=== PATIENT | female | born 1960 | race Caucasian/White ===

== ENCOUNTER 2017-09-01 17:27 | Emergency (ER) | payer OTHER ==
[~2017-09-01 17:27] MED LIST: DONNTAB12 PO; HYDR12.56 PO; LORTA5 PO; MECL25 PO; NEXI40CA PO; PENI500T PO; POTA20IN3 PO; PRAV20TA67 PO; SYNT100T PO; ZOFR4TAB3 SL; ZYRT10TA12 PO; [UNRECOGNIZED DRUG - OTHER] PO
--- NOTE | 2017-09-01 17:54 | PD ---
Physical Exam Time Seen by Provider: 17:50 Narrative Pt has history of depression, anxiety, memory loss, chronic pain, kidney disease with chronic hematuria, difficulty hearing, hypothyroidism presents to ED voluntary for psychiatric evaluation. Pt states she has been taking her meds as prescribed, however, family with her disagree and state they can only find 4 bottles of her meds that are prescribed. Pt's neurologic symptoms have worsened over the last year. Went to [facility] last night, but they referred her to [facility] and then here. Pt is having hallucinations intermittently. Denies SI/HI. Denies illicit drug use. Denies alcohol use. Data Data Last Documented VS Vital Signs Date Time Temp Pulse Resp B/P (MAP) Pulse Ox O2 Delivery O2 Flow Rate FiO2 09/02/17 01:17 09/01/17 19:32 98.6 68 16 100 Orders Orders Complete Blood Count With Diff (09/01/17 17:49) Basic Metabolic Panel (Bmp) (09/01/17 17:49) Urinalysis - C+S If Indicated (09/01/17 17:49) Psych Screen (09/01/17 17:49) Drug Screen, Random Urine (09/01/17 17:49) Alcohol (Ethanol) (09/01/17 17:49) Urine Culture (09/01/17 UNK) Thyroid Stimulating Hormone (09/01/17 22:14) Ct Brain W/O Iv Contrast(Rout) (09/01/17 ) Ct Abd/Pel W/O Iv Contrast (09/01/17 ) Hepatic Functional Panel (09/01/17 22:14) Ammonia (09/01/17 22:14) Lorazepam (Ativan) (09/01/17 23:00) Labs Laboratory Tests Test 09/01/17 00:00 09/01/17 16:40 09/01/17 18:45 09/01/17 22:45 Urine Color YELLOW Urine Turbidity HAZY Urine pH 6.0 Urine Specific [place] 1.018 Urine Protein TRACE mg/dL Urine Glucose (UA) NEG mg/dL Urine Ketones NEG mg/dL Urine Occult Blood MOD Urine Nitrite NEG Urine Bilirubin NEG Urine Urobilinogen 2.0 MG/DL Urine Leukocyte Esterase LARGE Urine RBC 65 /hpf Urine WBC 66 /hpf Urine Squamous Epithelial Cells 1 /hpf Urine Calcium Oxalate Crystals MOD /hpf Urine Amorphous Sediment RARE Urine Bacteria RARE /hpf Urine Mucus FEW /lpf Microscopic Urinalysis Comment CULTURE INDICATED Urine Opiates Screen NEG Urine Barbiturates Screen NEG Urine Amphetamines Screen NEG Urine Benzodiazepines Screen NEG Urine Cocaine Screen NEG Urine Cannabinoids Screen NEG Blood Urea Nitrogen 15 MG/DL Creatinine 1.08 MG/DL Random Glucose 98 MG/DL Calcium Level 9.0 MG/DL Sodium Level 139 MEQ/L Potassium Level 3.8 MEQ/L Chloride Level 105 MEQ/L Carbon Dioxide Level 27.9 MEQ/L Anion Gap 6 MEQ/L Estimat Glomerular Filtration Rate 52 ML/MIN Ethyl Alcohol Level LESS THAN 3 MG/DL White Blood Count 9.1 TH/MM3 Red Blood Count 4.16 MIL/MM3 Hemoglobin 12.1 GM/DL Hematocrit 35.3 % Mean Corpuscular Volume 84.7 FL Mean Corpuscular Hemoglobin 29.1 PG Mean Corpuscular Hemoglobin Concent 34.3 % Red Cell Distribution Width 13.1 % Platelet Count 358 TH/MM3 Mean Platelet Volume 8.0 FL Neutrophils (%) (Auto) 61.4 % Lymphocytes (%) (Auto) 28.3 % Monocytes (%) (Auto) 7.7 % Eosinophils (%) (Auto) 1.3 % Basophils (%) (Auto) 1.3 % Neutrophils # (Auto) 5.6 TH/MM3 Lymphocytes # (Auto) 2.6 TH/MM3 Monocytes # (Auto) 0.7 TH/MM3 Eosinophils # (Auto) 0.1 TH/MM3 Basophils # (Auto) 0.1 TH/MM3 CBC Comment DIFF FINAL Differential Comment Ammonia 37 MCMOL/L Test 09/01/17 23:31 Total Bilirubin 0.3 MG/DL Direct Bilirubin 0.1 MG/DL Indirect Bilirubin 0.2 MG/DL Aspartate Amino Transf (AST/SGOT) 22 U/L Alanine Aminotransferase (ALT/SGPT) 24 U/L Alkaline Phosphatase 90 U/L Total Protein 7.5 GM/DL Albumin 3.6 GM/DL Thyroid Stimulating Hormone 3rd Gen 0.657 uIU/ML [facility] Medical Record Reviewed: Yes Supervised Visit with CAYETANO: No Condition: Stable Berna Norris Sep 01, 2017 17:54
[2017-09-01 19:30] LABS: AUTOMATED NEUTROPHIL # 5.6 TH/MM3 (1.8-7.7); BASOPHIL # 0.1 TH/MM3 (0-0.2); BASOPHIL % 1.3 % (0.0-2.0); EOSINOPHIL # 0.1 TH/MM3 (0-0.4); EOSINOPHIL % 1.3 % (0.0-4.0); HEMATOCRIT 35.3 % (35.0-46.0); HEMO FLAGS DIFF FINAL; LYMPH % 28.3 % (9.0-44.0); LYMPHOCYTE # 2.6 TH/MM3 (1.0-4.8); MEAN CELL VOLUME 84.7 FL (80.0-100.0); MEAN CORPUSCULAR HEMOGLOBIN 29.1 PG (27.0-34.0); MEAN CORPUSCULAR HGB CONC 34.3 % (32.0-36.0); MONO % 7.7 % (0.0-8.0); NEUT % 61.4 % (16.0-70.0); PLATELET COUNT 358 TH/MM3 (150-450); RED BLOOD COUNT 4.16 MIL/MM3 (4.00-5.30); RED CELL DISTRIBUTION WIDTH 13.1 % (11.6-17.2); WHITE BLOOD COUNT 9.1 TH/MM3 (4.0-11.0)
[2017-09-01 19:32] VITALS: BP 148/77; TEMP 98.6; O2SAT 100
[2017-09-01 19:51] LABS: ANION GAP 6 MEQ/L (5-15); BICARBONATE 27.9 MEQ/L (21.0-32.0); BLOOD UREA NITROGEN 15 MG/DL (7-18); CHLORIDE 105 MEQ/L (98-107); GLOMERULAR FILTRATION RATE 52 ML/MIN (>89); POTASSIUM 3.8 MEQ/L (3.5-5.1); SODIUM (NA) 139 MEQ/L (136-145)
[2017-09-01 19:54] LABS: BACTERIA, URINE RARE /hpf; BLOOD, URINE MOD (NEG); CALCIUM OXALATE CRYSTALS,URINE MOD /hpf; COMMENT (UR) CULTURE INDICATED; CULTURE IF INDICATED CULTURE INDICATED; GLUCOSE,URINE NEG (NEG); KETONE, URINE NEG (NEG); MUCUS URINE FEW /lpf (OCC); NITRITE,URINE NEG (NEG); SQUAMOUS EPITHELIAL CELL URINE 1 /hpf (0-5); URINE COLOR YELLOW (YELLW/STRAW)
[2017-09-01 19:58] LABS: ALCOHOL LESS THAN 3 MG/DL (0-5)
[2017-09-01] MEDS ORDERED: LORazepam 1 MG TAB PO ONE (23:00)
--- NOTE | 2017-09-01 23:14 | RADRPT ---
EXAM DATE/TIME: 09/01/2017 22:59 [facility] COMPARISON: No previous studies available for comparison. INDICATIONS : Altered mental status. RADIATION DOSE: 45.86 CTDIvol (mGy) MEDICAL HISTORY : Renal calculi. SURGICAL HISTORY : Sinus surgery. ENCOUNTER: Initial ACUITY: 1 day PAIN SCALE: 0/10 LOCATION: cranial TECHNIQUE: Multiple contiguous axial images were obtained of the head. Using automated exposure control and adj ustment of the mA and/or kV according to patient size, radiation dose was kept as low as reasonably a chievable to obtain optimal diagnostic quality images. DICOM format image data is available electro nically for review and comparison. FINDINGS: CEREBRUM: The ventricles are normal for age. No evidence of midline shift, mass lesion, hemorrhage or acute in farction. No extra-axial fluid collections are seen. POSTERIOR FOSSA: The cerebellum and brainstem are intact. The 4th ventricle is midline. The cerebellopontine angle i s unremarkable. EXTRACRANIAL: The visualized portion of the orbits is intact. SKULL: The calvaria is intact. No evidence of skull fracture. CONCLUSION: Negative noncontrast head CT. Tono Molina MD on September 01, 2017 at 23:11 Board Certified Radiologist. This report was verified electronically.
--- NOTE | 2017-09-01 23:17 | RADRPT ---
EXAM DATE/TIME: 09/01/2017 23:02 [facility] COMPARISON: No previous studies available for comparison. INDICATIONS : Left flank pain with hematuria. ORAL CONTRAST: No oral contrast ingested. RADIATION DOSE: 5.14 CTDIvol (mGy) MEDICAL HISTORY : Renal calculi. SURGICAL HISTORY : Sinus surgery.Bladder lift ENCOUNTER: Initial ACUITY: 1 day PAIN SCALE: 7/10 LOCATION: Left flank abdomen TECHNIQUE: Volumetric scanning of the abdomen and pelvis was performed. Using automated exposure control and ad justment of the mA and/or kV according to patient size, radiation dose was kept as low as reasonably achievable to obtain optimal diagnostic quality images. DICOM format image data is available electro nically for review and comparison. FINDINGS: LOWER LUNGS: The visualized lower lungs are clear. LIVER: Homogeneous density without lesion. There is no dilation of the biliary tree. No calcified gallston es. SPLEEN: Normal size without lesion. PANCREAS: Within normal limits. KIDNEYS: Scattered nonobstructing stones are seen of both kidneys including 7 mm right mid, 2 and 3 mm right l ower pole, 7 and 3 mm left upper pole and 4 mm left lower pole. No ureteral calculus demonstrated. No hydronephrosis or hydroureter. ADRENAL GLANDS: Within normal limits. VASCULAR: There is no aortic aneurysm. BOWEL/MESENTERY: The stomach, small bowel, and colon demonstrate no acute abnormality. There is no free intraperitone al air or fluid. Well-visualized appendix, normal. ABDOMINAL WALL: Within normal limits. RETROPERITONEUM: There is no lymphadenopathy. BLADDER: No wall thickening or mass. REPRODUCTIVE: Previous hysterectomy. Pessary present. No free fluid. INGUINAL: There is no lymphadenopathy or hernia. MUSCULOSKELETAL: No acute bony abnormality demonstrated. CONCLUSION: Several subcentimeter nonobstructing stones of both kidneys. No ureteral stone or evidence of acute o bstructive uropathy on either side. Tono Molina MD on September 01, 2017 at 23:13 Board Certified Radiologist. This report was verified electronically.
[2017-09-01 23:52] LABS: INDIRECT BILIRUBIN 0.2 MG/DL (0.0-0.8); TOTAL BILIRUBIN ADULT 0.3 MG/DL (0.2-1.0)
--- NOTE | 2017-09-02 00:53 | PD ---
HPI Chief Complaint: Psychiatric Symptoms Time Seen by Provider: 21:45 Travel History International Travel<30 days: No Contact w/Intl Traveler<30days: No Traveled to known affect area: No History of Present Illness HPI Patient is a 57 year old female who comes in with her family due to concerns over memory loss and inability to care for herself. The patient does seem to be having issues with her memory and she realizes this. She says she has some pain to her left side from chronic kidney stones. She has no other complaints. Family states she has had a decline in her memory over the past year and it seems to have gotten worse in the past few months. There are concerns she may have some hallucinations. Family tried taking her to [facility] because they feel she needs to be managed by psychiatry, but they were told that was not the place for her. They then tried going to [facility] and they were then referred here. Family reports her mother had early onset dementia in her 50s. PFSH Past Medical History Asthma: Yes Diminished Hearing: No Kidney Stones: Yes Respiratory: Yes (SLEEP APNEA, ASTHMA) Thyroid Disease: Yes Past Surgical History Gynecologic Surgery: Yes (MONIKA) Other Surgery: Yes (SINUS SURGERY X 3) Social History Alcohol Use: Yes (WINE DAILY) Tobacco Use: No Substance Use: No Allergies-Medications (Allergen,Severity, Reaction): Coded Allergies: acetaminophen (Unverified Allergy, Severe, 07/15/17) daptomycin (Unverified Allergy, Severe, 07/15/17) hydromorphone (Unverified Allergy, Severe, 07/15/17) indomethacin (Unverified Allergy, Severe, 07/15/17) morphine (Unverified Allergy, Severe, 07/15/17) oxycodone (Unverified Allergy, Severe, 07/15/17) rifampin (Unverified Allergy, Severe, 07/15/17) Sulfa (Sulfonamide Antibiotics) (Unverified Allergy, Intermediate, VOMITING, 07/15/17) isosorbide (Unverified Allergy, Intermediate, 07/15/17) Reported Meds & Prescriptions Reported Meds & Active Scripts Active Lortab 5/325 Tab (Hydrocodone-Acetaminophen) 1 Tab Tab 1 Tab PO Q4 PRN Zofran ODT (Ondansetron HCl) 4 Mg Tab 4-8 Mg SL Q6 PRN FOR NAUSEA/VOMITING Antivert (Meclizine HCl) 25 Mg Tab 25 Mg PO Q6 PRN Reported [Urbel] Unknown Dose PO DAILY Pen Vk (Penicillin V Potassium) 500 Mg Tab 500 Mg PO QID Potassium Chloride 20 Meq Pow 20 Meq PO DAILY Hctz (Hydrochlorothiazide) 12.5 Mg Cap 12.5 Mg PO DAILY Synthroid (Levothyroxine Sodium) 100 Mcg Tab 100 Mcg PO DAILY Nexium (Esomeprazole) 40 Mg Cap 40 Mg PO BID Pravachol (Pravastatin Sodium) 20 Mg Tab 20 Mg PO HS (Belladonna Alkaloids/Phenobarbital) Tab 1 Tab PO TID Zyrtec (Cetirizine HCl) 10 Mg Tab 10 Mg PO DAILY Review of Systems Except as stated in HPI: all other systems reviewed are Neg General / Constitutional: No: Fever, Chills Eyes: No: Blurred Vision HENT: No: Headaches, Lightheadedness Cardiovascular: No: Chest Pain or Discomfort Respiratory: No: Shortness of Breath Gastrointestinal: No: Nausea, Vomiting, Abdominal Pain Genitourinary: Positive: Hematuria, Flank Pain Musculoskeletal: No: Edema, Pain Skin: No Rash, No Change in Pigmentation Neurologic: No: Weakness, Dizziness, Syncope, Coordination Problem, Slurred Speech Physical Exam Narrative GENERAL: Awake and alert, in no acute distress. SKIN: Focused skin assessment warm/dry. HEAD: Atraumatic. Normocephalic. EYES: Pupils equal and round. No scleral icterus. EOMI. ENT: Mucous membranes pink and moist. NECK: Trachea midline. No JVD. CARDIOVASCULAR: Regular rate and rhythm. No murmur appreciated. RESPIRATORY: No accessory muscle use. Clear to auscultation. Breath sounds equal bilaterally. GASTROINTESTINAL: Abdomen soft, non-tender, nondistended. left CVA tenderness. MUSCULOSKELETAL: No obvious deformities. No clubbing. No cyanosis. No edema. NEUROLOGICAL: Awake and alert, oriented to person, place and time. No obvious cranial nerve deficits. Motor grossly within normal limits. Normal speech. PSYCHIATRIC: Appropriate mood and affect; insight and judgment normal. Data Data Last Documented VS Vital Signs Date Time Temp Pulse Resp B/P (MAP) Pulse Ox O2 Delivery O2 Flow Rate FiO2 09/01/17 19:32 98.6 68 16 148/77 (100) 100 Orders Orders Complete Blood Count With Diff (09/01/17 17:49) Basic Metabolic Panel (Bmp) (09/01/17 17:49) Urinalysis - C+S If Indicated (09/01/17 17:49) Psych Screen (09/01/17 17:49) Drug Screen, Random Urine (09/01/17 17:49) Alcohol (Ethanol) (09/01/17 17:49) Urine Culture (09/01/17 UNK) Thyroid Stimulating Hormone (09/01/17 22:14) Ct Brain W/O Iv Contrast(Rout) (09/01/17 ) Ct Abd/Pel W/O Iv Contrast (09/01/17 ) Hepatic Functional Panel (09/01/17 22:14) Ammonia (09/01/17 22:14) Lorazepam (Ativan) (09/01/17 23:00) Labs Laboratory Tests Test 09/01/17 00:00 09/01/17 16:40 09/01/17 18:45 09/01/17 22:45 Urine Color YELLOW Urine Turbidity HAZY Urine pH 6.0 Urine Specific [place] 1.018 Urine Protein TRACE mg/dL Urine Glucose (UA) NEG mg/dL Urine Ketones NEG mg/dL Urine Occult Blood MOD Urine Nitrite NEG Urine Bilirubin NEG Urine Urobilinogen 2.0 MG/DL Urine Leukocyte Esterase LARGE Urine RBC 65 /hpf Urine WBC 66 /hpf Urine Squamous Epithelial Cells 1 /hpf Urine Calcium Oxalate Crystals MOD /hpf Urine Amorphous Sediment RARE Urine Bacteria RARE /hpf Urine Mucus FEW /lpf Microscopic Urinalysis Comment CULTURE INDICATED Urine Opiates Screen NEG Urine Barbiturates Screen NEG Urine Amphetamines Screen NEG Urine Benzodiazepines Screen NEG Urine Cocaine Screen NEG Urine Cannabinoids Screen NEG Blood Urea Nitrogen 15 MG/DL Creatinine 1.08 MG/DL Random Glucose 98 MG/DL Calcium Level 9.0 MG/DL Sodium Level 139 MEQ/L Potassium Level 3.8 MEQ/L Chloride Level 105 MEQ/L Carbon Dioxide Level 27.9 MEQ/L Anion Gap 6 MEQ/L Estimat Glomerular Filtration Rate 52 ML/MIN Ethyl Alcohol Level LESS THAN 3 MG/DL White Blood Count 9.1 TH/MM3 Red Blood Count 4.16 MIL/MM3 Hemoglobin 12.1 GM/DL Hematocrit 35.3 % Mean Corpuscular Volume 84.7 FL Mean Corpuscular Hemoglobin 29.1 PG Mean Corpuscular Hemoglobin Concent 34.3 % Red Cell Distribution Width 13.1 % Platelet Count 358 TH/MM3 Mean Platelet Volume 8.0 FL Neutrophils (%) (Auto) 61.4 % Lymphocytes (%) (Auto) 28.3 % Monocytes (%) (Auto) 7.7 % Eosinophils (%) (Auto) 1.3 % Basophils (%) (Auto) 1.3 % Neutrophils # (Auto) 5.6 TH/MM3 Lymphocytes # (Auto) 2.6 TH/MM3 Monocytes # (Auto) 0.7 TH/MM3 Eosinophils # (Auto) 0.1 TH/MM3 Basophils # (Auto) 0.1 TH/MM3 CBC Comment DIFF FINAL Differential Comment Ammonia 37 MCMOL/L Test 09/01/17 23:31 Total Bilirubin 0.3 MG/DL Direct Bilirubin 0.1 MG/DL Indirect Bilirubin 0.2 MG/DL Aspartate Amino Transf (AST/SGOT) 22 U/L Alanine Aminotransferase (ALT/SGPT) 24 U/L Alkaline Phosphatase 90 U/L Total Protein 7.5 GM/DL Albumin 3.6 GM/DL Thyroid Stimulating Hormone 3rd Gen 0.657 uIU/ML MDM Medical Decision Making Medical Screen Exam Complete: Yes Emergency Medical Condition: Yes Differential Diagnosis Dementia vs electrolyte abnormalities vs intracranial pathology vs hypothyroidism Narrative Course Patient is a 57 year old female who is brought in by her family due to concerns over memory issues. On mini mental status exam, patient had only one word recall, but otherwise performed well. She knows where she is, the month, year and president. She only complains of chronic flank pain. Family is concerned she cannot take care of herself. IV established, labs sent. Labs show no acute abnormalities. Electrolytes are within normal limits, Hgb is within normal limits, TSH is within normal limits. CT head shows no acute abnormalities. CT abd/pelvis shows stones within the kidneys, no obstructing stones. Family informed of the results. They wanted to see psychiatry, but now would rather follow up as an outpatient. She will go home with her brother and stay with him. Family will go and speak with her primary care doctor and neurologist. Family is comfortable with this plan at this time. Advised to return at any time for any worsening issues or concerns. Diagnosis Primary Impression: Memory difficulties Patient Instructions: Dementia (ED), General Instructions Additional Instructions: Follow up with your doctors. Take your medications as prescribed. Return to the ED as needed for any worsening symptoms. Disposition: 01 DISCHARGE HOME Condition: Stable Kamala Mcintyre MD Sep 02, 2017 00:53
== END 2017-09-02 01:18 | disposition home or self-care (01) ==
LOC: NEPD 17:27
DX: R41.3 Other amnesia (principal); R31.9 Hematuria, unspecified; N20.0 Calculus of kidney; J45.909 Unspecified asthma, uncomplicated; G47.30 Sleep apnea, unspecified; E07.9 Disorder of thyroid, unspecified; Z87.442 Personal history of urinary calculi; Z79.899 Other long term (current) drug therapy; Z88.2 Allergy status to sulfonamides
CPT/HCPCS: 70450; 74176; 80048; 80076; 80307; 81001; 82140; 84443; 85025; 87077; 87086; 87186; 99285

== ENCOUNTER 2018-04-30 10:55 | Emergency (ER) | payer OTHER ==
[~2018-04-30] VITALS: Ht 152.4 cm; Wt 71.8 kg
[2018-04-30 11:00] VITALS: BP 143/70; PULSE 79; RESP 16; TEMP 97.9; O2SAT 100
[2018-04-30] MEDS ORDERED: ESTR0.5T PO (11:18)
[2018-04-30] MEDS ORDERED: SERT-129 PO (11:18)
[2018-04-30] MEDS ORDERED: FENO2.5C PO (11:18)
[2018-04-30] MEDS ORDERED: COQ-50CA2 PO (11:18)
[2018-04-30] MEDS ORDERED: ESTR.3 PO (11:18)
[2018-04-30] MEDS ORDERED: ATOR20TA15 PO (11:18)
[2018-04-30] MEDS ORDERED: FLUT50SP EACH NARE (11:18)
[2018-04-30] MEDS ORDERED: MULTTAB67 PO (11:18)
[2018-04-30] MEDS ORDERED: MEMA1TAB PO (11:18)
[2018-04-30] MEDS ORDERED: POTA10TA2 PO (11:18)
[2018-04-30] MEDS ORDERED: CHOL10008 PO (11:18)
[2018-04-30] MEDS ORDERED: CETI1TAB21 PO (11:18)
[2018-04-30] MEDS ORDERED: CLON0.5T PO (11:18)
[2018-04-30] MEDS ORDERED: HYDR25TA5 PO (11:18)
[2018-04-30] MEDS ORDERED: LEVO75TA3 PO (11:18)
--- NOTE | 2018-04-30 11:32 | PD ---
HPI Chief Complaint: Abdominal Pain Time Seen by Provider: 11:16 Travel History International Travel<30 days: No Contact w/Intl Traveler<30days: No Traveled to known affect area: No History of Present Illness HPI This 58-year-old female is complaining of abdominal pain. She says for several weeks has been having abdominal pain. She does have some flank pain and has a history of kidney stones. She is also having some pain in the left side of the epigastric area which has been fairly persistent. She currently resides at [place]. She apparently has early Alzheimer's disease. She is given ibuprofen for her pain. She says she does not want narcotic pain medication. She is not aware of fever or chills. There has not been vomiting. She does say that she feels like her abdomen is distended. She says that she gets some abdominal distention with her kidney stones PFSH Past Medical History Alzheimer's Disease: Yes (EARLY ONSET) Asthma: Yes Anxiety: Yes High Cholesterol: Yes Diminished Hearing: No Kidney Stones: Yes Medical other: Yes (ESOPHAGEAL STRICTURE) Respiratory: Yes (SLEEP APNEA, ASTHMA) Thyroid Disease: Yes Past Surgical History Gynecologic Surgery: Yes (MONIKA) Other Surgery: Yes (SINUS SURGERY X 3) Social History Alcohol Use: Yes (WINE DAILY) Tobacco Use: No Substance Use: No Allergies-Medications (Allergen,Severity, Reaction): Coded Allergies: acetaminophen (Unverified Allergy, Severe, 04/30/18) daptomycin (Unverified Allergy, Severe, 04/30/18) hydromorphone (Unverified Allergy, Severe, 04/30/18) indomethacin (Unverified Allergy, Severe, 04/30/18) morphine (Unverified Allergy, Severe, 04/30/18) oxycodone (Unverified Allergy, Severe, 04/30/18) rifampin (Unverified Allergy, Severe, 04/30/18) Sulfa (Sulfonamide Antibiotics) (Unverified Allergy, Intermediate, VOMITING, 04/30/18) isosorbide (Unverified Allergy, Intermediate, 04/30/18) Reported Meds & Prescriptions Reported Meds & Active Scripts Active Reported Potassium Chloride ER (Potassium Chloride) 10 Meq Tab 10 Meq PO BID Memantine 5 Mg Tab 5 Mg PO BID Fluticasone Nasal [place] 50 Mcg/Act Naspr 50 Mcg EACH NARE BID 50 mcg/spray Clonazepam 0.5 Mg Tab 0.125 Mg PO BID Sertraline (Sertraline HCl) 100 Mg Tab 100 Mg PO DAILY Premarin (Estrogens Conjugated) 0.3 Mg Tab 0.1 Mg PO DAILY Multiple Vitamin 1 Tab 1 Tab PO DAILY Levothyroxine (Levothyroxine Sodium) 75 Mcg Tab 75 Mcg PO DAILY Hydrochlorothiazide 25 Mg Tab 25 Mg PO DAILY Fenofibrate 50 Mg Cap 135 Mg PO HS Estradiol 0.5 Mg Tab 0.5 Mg PO DAILY Vitamin D3 (Cholecalciferol) 1,000 Unit Cap 500 Units PO DAILY Coq-10 (Coenzyme Q10 (Ubidecarenone)) 50 Mg Cap 100 Mg PO DAILY Cetirizine-Pseudoephedrine 12 HR 5-120 Mg Tab 1 Tab PO DAILY Atorvastatin (Atorvastatin Calcium) 20 Mg Tab 20 Mg PO HS Review of Systems Except as stated in HPI: all other systems reviewed are Neg General / Constitutional: No: Fever, Chills Eyes: No: Diploplia, Blurred Vision HENT: No: Headaches, Vertigo Cardiovascular: No: Chest Pain or Discomfort, Palpitations Respiratory: No: Cough, Shortness of Breath Gastrointestinal: Positive: Abdominal Pain, No: Vomiting, Diarrhea Genitourinary: No: Urgency, Frequency Musculoskeletal: No: Myalgias, Arthralgias Skin: No Rash, No Itching Neurologic: Positive: Other (Alzheimer's), No: Weakness Physical Exam Narrative GENERAL: Well developed female SKIN: Focused skin assessment warm/dry. HEAD: Atraumatic. Normocephalic. EYES: Pupils equal and round. No scleral icterus. No injection or drainage. ENT: No nasal bleeding or discharge. Mucous membranes pink and moist. NECK: Trachea midline. No JVD. CARDIOVASCULAR: Regular rate and rhythm. No murmur appreciated. RESPIRATORY: No accessory muscle use. Clear to auscultation. Breath sounds equal bilaterally. GASTROINTESTINAL: Abdomen soft, there is some epigastric tenderness without guarding or rigidity nondistended. Hepatic and splenic margins not palpable. MUSCULOSKELETAL: No obvious deformities. No clubbing. No cyanosis. No edema. NEUROLOGICAL: Awake and alert. No obvious cranial nerve deficits. Motor grossly within normal limits. Normal speech. PSYCHIATRIC: Appropriate mood and affect; insight and judgment normal. Data Data Last Documented VS Vital Signs Date Time Temp Pulse Resp B/P (MAP) Pulse Ox O2 Delivery O2 Flow Rate FiO2 04/30/18 11:00 97.9 79 16 143/70 (94) 100 Orders Orders Complete Blood Count With Diff (04/30/18 11:28) Comprehensive Metabolic Panel (04/30/18 11:28) Lipase (04/30/18 11:28) Urinalysis - C+S If Indicated (04/30/18 11:28) Ct Abd/Pel W Iv Contrast(Rout) (04/30/18 11:28) Sodium Chlor 0.9% 1000 Ml Inj (Ns 1000 M (04/30/18 11:45) Ketorolac Inj (Toradol Inj) (04/30/18 11:45) Urine Culture (04/30/18 11:35) Iodixanol 320 Inj (Rad Ct) (Visipaque 32 (04/30/18 12:43) Ceftriaxone Inj (Rocephin Inj) (04/30/18 13:30) Labs Laboratory Tests Test 04/30/18 11:35 White Blood Count 7.3 TH/MM3 Red Blood Count 3.92 MIL/MM3 Hemoglobin 10.4 GM/DL Hematocrit 32.6 % Mean Corpuscular Volume 83.1 FL Mean Corpuscular Hemoglobin 26.7 PG Mean Corpuscular Hemoglobin Concent 32.1 % Red Cell Distribution Width 13.3 % Platelet Count 422 TH/MM3 Mean Platelet Volume 8.0 FL Neutrophils (%) (Auto) 67.3 % Lymphocytes (%) (Auto) 22.1 % Monocytes (%) (Auto) 6.9 % Eosinophils (%) (Auto) 2.9 % Basophils (%) (Auto) 0.8 % Neutrophils # (Auto) 4.9 TH/MM3 Lymphocytes # (Auto) 1.6 TH/MM3 Monocytes # (Auto) 0.5 TH/MM3 Eosinophils # (Auto) 0.2 TH/MM3 Basophils # (Auto) 0.1 TH/MM3 CBC Comment DIFF FINAL Differential Comment Urine Collection Type CLEAN CATCH Urine Color YELLOW Urine Turbidity SL CLOUDY Urine pH 6.5 Urine Specific [place] 1.010 Urine Protein NEG mg/dL Urine Glucose (UA) NEG mg/dL Urine Ketones NEG mg/dL Urine Occult Blood TRACE Urine Nitrite NEG Urine Bilirubin NEG Urine Urobilinogen 0.2 MG/DL Urine Leukocyte Esterase LARGE Urine RBC 4-9 /hpf Urine WBC 25-49 /hpf Urine WBC Clumps MOD Urine Squamous Epithelial Cells 6-8 /hpf Urine Bacteria OCC /hpf Microscopic Urinalysis Comment CULTURE INDICATED Blood Urea Nitrogen 25 MG/DL Creatinine 1.40 MG/DL Random Glucose 95 MG/DL Total Protein 7.3 GM/DL Albumin 3.5 GM/DL Calcium Level 9.0 MG/DL Alkaline Phosphatase 53 U/L Aspartate Amino Transf (AST/SGOT) 26 U/L Alanine Aminotransferase (ALT/SGPT) 28 U/L Total Bilirubin 0.2 MG/DL Sodium Level 142 MEQ/L Potassium Level 3.5 MEQ/L Chloride Level 104 MEQ/L Carbon Dioxide Level 30.1 MEQ/L Anion Gap 8 MEQ/L Estimat Glomerular Filtration Rate 39 ML/MIN Lipase 147 U/L MDM Medical Decision Making Medical Screen Exam Complete: Yes Emergency Medical Condition: Yes Medical Record Reviewed: Yes Differential Diagnosis Differential includes renal colic, gastritis secondary to ibuprofen. She does have a history of GERD and is on omeprazole Narrative Course White count is normal. Urinalysis does show no evidence of urinary tract infection. CT has been done and does not show cause for pain. There is she is noted to have steatosis. She has nonobstructing kidney stones. She will be treated for urinary tract infection Diagnosis Primary Impression: Urinary tract infection Scripts Cephalexin (Keflex) 500 Mg Capsule 500 MG PO QID for Infection for 10 Days, CAP 0 Refills Prov: Jaylon Washington MD 04/30/18 Disposition: 01 DISCHARGE HOME Condition: Stable Jaylon Washington MD April 30, 2018 11:32
[2018-04-30] MEDS ORDERED: KETOROLAC TROMETHAMINE 30 MG/ML (IVP) VIAL IV PUSH ONE (11:45)
[2018-04-30] MEDS ORDERED: SODIUM CHLOR 0.9% 1000 ML INJ 1,000 ML IV ONE (11:45)
[2018-04-30 11:51] LABS: AUTOMATED NEUTROPHIL # 4.9 TH/MM3 (1.8-7.7); BASOPHIL # 0.1 TH/MM3 (0-0.2); BASOPHIL % 0.8 % (0.0-2.0); EOSINOPHIL # 0.2 TH/MM3 (0-0.4); EOSINOPHIL % 2.9 % (0.0-4.0); HEMATOCRIT 32.6 % (35.0-46.0); HEMOGLOBIN 10.4 GM/DL (11.6-15.3); LYMPH % 22.1 % (9.0-44.0); LYMPHOCYTE # 1.6 TH/MM3 (1.0-4.8); MEAN CELL VOLUME 83.1 FL (80.0-100.0); MEAN CORPUSCULAR HEMOGLOBIN 26.7 PG (27.0-34.0); MEAN CORPUSCULAR HGB CONC 32.1 % (32.0-36.0); MONO % 6.9 % (0.0-8.0); MONOCYTE # 0.5 TH/MM3 (0-0.9); NEUT % 67.3 % (16.0-70.0); PLATELET COUNT 422 TH/MM3 (150-450); RED BLOOD COUNT 3.92 MIL/MM3 (4.00-5.30); RED CELL DISTRIBUTION WIDTH 13.3 % (11.6-17.2); WHITE BLOOD COUNT 7.3 TH/MM3 (4.0-11.0)
[2018-04-30 11:57] LABS: BILIRUBIN, URINE NEG (NEG); BLOOD, URINE TRACE (NEG); GLUCOSE,URINE NEG (NEG); KETONE, URINE NEG (NEG); NITRITE,URINE NEG (NEG); PH, URINE 6.5 (5.0-8.5); URINE COLOR YELLOW (YELLW/STRAW); URINE LEUKOCYTE ESTERASE LARGE (NEG)
[2018-04-30 12:01] LABS: CHLORIDE 104 MEQ/L (98-107); SODIUM (NA) 142 MEQ/L (136-145)
[2018-04-30 12:04] LABS: ALBUMIN 3.5 GM/DL (3.4-5.0); BICARBONATE 30.1 MEQ/L (21.0-32.0); BLOOD UREA NITROGEN 25 MG/DL (7-18); GLUCOSE,RANDOM 95 MG/DL (74-106)
[2018-04-30 12:07] LABS: ALT (GPT) 28 U/L (10-53); AST (GOT) 26 U/L (15-37); GLOMERULAR FILTRATION RATE 39 ML/MIN (>89)
[2018-04-30 12:09] LABS: TOTAL BILIRUBIN ADULT 0.2 MG/DL (0.2-1.0); TOTAL PROTEIN 7.3 GM/DL (6.4-8.2)
[2018-04-30 12:10] LABS: ALKALINE PHOSPHATASE 53 U/L (45-117)
[2018-04-30 12:25] LABS: BACTERIA, URINE OCC /hpf; WHITE BLOOD CELL CLUMPS MOD
[2018-04-30] MEDS ORDERED: IODIXANOL 320 MG/ML 10 ML VIAL (for Rad CT) IVCONTRAST ONE (12:43)
--- NOTE | 2018-04-30 12:57 | RADRPT ---
EXAM DATE: 04/30/2018 12:43 PM EDT AGE/SEX: 58 years / Female INDICATIONS: Left mid abdominal pain and nausea. Abdominal distention. CLINICAL DATA: This is the patient's initial encounter. Patient reports that signs and symptoms have been present for 2 weeks and indicates a pain score of 7/10. MEDICAL/SURGICAL HISTORY: Renal calculi. Asthma. . Bladder lift. ORAL CONTRAST: No oral contrast ingested. RADIATION DOSE: 9.34 CTDI (mGy) COMPARISON: [facility] [place], CT ABDOMEN & PELVIS W/O CONTRAST, 09/01/2017. . TECHNIQUE: Multiple contiguous axial images were obtained through the abdomen and pelvis following b olus infusion of 50 ml Visipaque 320 (iodixanol) nonionic water-soluble contrast as a single exam d ose. No oral contrast ingested. Using automated exposure control and adjustment of the mA and/or kV according to patient size, the radiation dose was kept as low as reasonably achievable to obtain opti mal diagnostic quality images. FINDINGS: LOWER LUNGS: The visualized lower lungs are clear. LIVER: Mildly enlarged with diffuse decreased attenuation without focal mass or intrahepatic ductal dilatation. No calcified gallstones. SPLEEN: Homogeneous density without enlargement. PANCREAS: Unremarkable without mass or calcification. KIDNEYS: Kidneys are symmetrical in size and demonstrate symmetrical enhancement. Redemonstration of multiple 2-3 mm calcified bilateral calyceal calculi unchanged in number and size from previous exam . ADRENAL GLANDS: Unremarkable. AORTA: Baylee-aneurysmal. BOWEL/MESENTERY: Mild sigmoid diverticulosis without inflammatory change to suggest diverticulitis. Appendix is visualized and normal in appearance. No evidence for bowel obstruction. No free fluid or drainable fluid collections. ABDOMINAL WALL: Intact. RETROPERITONEUM: No evidence of adenopathy in the retrocrural, para-aortic, or deep pelvic regions. BLADDER: Contours are smooth. REPRODUCTIVE: Previous hysterectomy with pessary in place. BONY STRUCTURES: Unremarkable. CONCLUSION: 1. No acute abnormality to explain patient's abdominal pain. 2. Redemonstration of 2-3 mm bilateral nonobstructing calyceal renal calculi. 3. Normal appendix. 4. Mild hepatomegaly with diffusely decreased attenuation consistent with hepatic steatosis. 5. Colonic diverticulosis without inflammatory change to suggest diverticulitis. Electronically signed by: James Mcdaniel MD 04/30/2018 12:56 PM EDT
[2018-04-30] MEDS ORDERED: CEPH-460 PO (13:28)
[2018-04-30] MEDS ORDERED: cefTRIAXone INJ 1,000 MG in SODIUM CHLORIDE 0.9% INJ 100 ML IV ONE (13:30)
[2018-04-30 13:38] VITALS: BP 126/70; PULSE 78; RESP 20; O2SAT 100
== END 2018-04-30 15:05 | disposition home or self-care (01) ==
LOC: PHED 10:55
DX: N39.0 Urinary tract infection, site not specified (principal); N20.0 Calculus of kidney; G30.9 Alzheimer's disease, unspecified; F02.80 Dementia in other diseases classified elsewhere, unspecified severity, without behavioral disturbance, psychotic disturbance, mood disturbance, and anxiety; J45.909 Unspecified asthma, uncomplicated; F41.9 Anxiety disorder, unspecified; E78.00 Pure hypercholesterolemia, unspecified; G47.30 Sleep apnea, unspecified
CPT/HCPCS: 74177; 80053; 81001; 83690; 85025; 87086; 96361; 96365; 96375; 99284; J0696; J1885; J7030; Q9967